=== PATIENT | male | born 1950 | race Caucasian/White ===

== ENCOUNTER 2018-06-21 08:50 | Emergency (ER) | payer MEDICARE, BC ==
[~2018-06-21] VITALS: Ht 188 cm; Wt 102.5 kg
[2018-06-21] MEDS ORDERED: INSU100V8 SQ (09:09)
[2018-06-21] MEDS ORDERED: METO-356 PO (09:09)
[2018-06-21] MEDS ORDERED: GABA300C PO (09:09)
[2018-06-21] MEDS ORDERED: APIX5TAB PO (09:09)
[2018-06-21] MEDS ORDERED: OSIM80TA PO (09:09)
[2018-06-21] MEDS ORDERED: INSULIN PUMP (09:09)
[2018-06-21] MEDS ORDERED: CLINDAMYCIN PHOSPHATE 1% TOP (09:09)
[2018-06-21] MEDS ORDERED: CLOP75TA15 PO (09:09)
--- NOTE | 2018-06-21 09:15 | NUR ---
Dr Bhakta at the bedside for MSE.
--- NOTE | 2018-06-21 09:40 | NUR ---
Small dressing applied to Rt foot anterioly, and Lt foot latheraly per MD order.
--- NOTE | 2018-06-21 09:44 | NUR ---
Patient discharged to home in stable conditon. Written and verbal after care instructions given. Patient verbalizes understanding of instructions. Pt walked out of Er using own cane, accompained by family.
[2018-06-21 09:45] VITALS: BP 135/78
== END 2018-06-21 09:46 | disposition home or self-care (01) ==
LOC: ER 08:50
DX: R21 Rash and other nonspecific skin eruption (principal); E11.9 Type 2 diabetes mellitus without complications; Z88.0 Allergy status to penicillin; Z88.6 Allergy status to analgesic agent
CPT/HCPCS: A4663